=== PATIENT | female | born 1960 | race Caucasian/White ===

== ENCOUNTER 2017-02-11 12:42 | Observation (INO) | payer MEDICAID ==
[2017-02-11] VITALS (9 sets, daily range): BP systolic 103–144; BP diastolic 57–73; PULSE 56–94; RESP 18–20; TEMP 98–98.3; O2SAT 94–99
[~2017-02-11] VITALS: Ht 152.4 cm; Wt 114.5 kg
[~2017-02-11 12:42] MED LIST: ARNI20TI TOPICAL; BUPR100T4 PO; D400400C PO; DULO1CAP3 PO; EPIN1INJ17 IM; FERR300S PO; FISH1000 PO; GABA600T PO; MECL-62 PO; MENT10SP3 EXT; NAPR250T PO; PROP20TA3 PO; TOPI200 PO; ZYRT10TA PO; [UNRECOGNIZED DRUG - CODE] PO
[2017-02-11] MEDS ORDERED: SODIUM CHLORIDE 0.9% FLUSH 10 ML FLUSH IVF PRN (13:00)
--- NOTE | 2017-02-11 13:04 | PD ---
HPI Chief Complaint: Chest Pain Time Seen by Provider: 12:59 Travel History International Travel<30 days: No Contact w/Intl Traveler<30days: No Traveled to known affect area: No History of Present Illness HPI The patient was seen and examined in the presence of the nurse. This patient complains of chest pain. Duration is one hour. Location is center sternum. Not exertionally induced. Pain comes and goes, starts minor and then builds up. No radiation. She denies history of CAD. She is an ex smoker. She reports she had a stress test several years ago that was normal. She has history of fibromyalgia. No alleviating factors. Severity is moderate PFSH Past Medical History ?: Not Social History Alcohol Use: No Tobacco Use: No Substance Use: No Allergies-Medications (Allergen,Severity, Reaction): Coded Allergies: Bactrim (Verified Allergy, Severe, hives, 02/11/17) Pea (Verified Allergy, Severe, Nausea, 02/11/17) Sulfa (Verified Allergy, Severe, Hives, 02/11/17) White Chen (Verified Allergy, Severe, Nausea, 02/11/17) Uncoded Allergies: venom-honey bee (Allergy, Severe, Respiratory Distress, 02/11/17) Reported Meds & Prescriptions Reported Meds & Active Scripts Active Zyrtec Allergy (Cetirizine HCl) 10 Mg Tab 10 Mg PO DAILY Ferrous Sulfate Liq (Ferrous Sulfate) 300 Mg/5 Ml Soln 300 Mg PO BID Topamax (Topiramate) 200 Mg Tab 200 Mg PO BID Propranolol (Propranolol HCl) 20 Mg Tab 20 Mg PO Q8HR Bupropion HCl 100 Mg Tab 100 Mg PO TID Epinephrine Inj (Epinephrine) 0.3 Mg/0.3 Ml Pfpen 0.3 Mg IM ONCE PRN Duloxetine DR (Duloxetine HCl) 60 Mg Capdr 60 Mg PO DAILY Gabapentin 600 Mg Tab 2 Tab PO TID Start by taking 1 tablet three times daily for a week and if you are able to tolerate this by the end of the week, then increase to 2 tablets three times daily. Reported Arnica Tincture Topical (Arnica Topical) 20% Tinc 3 % TOPICAL DIRECTED Biofreeze (Menthol (Topical Analgesic)) 10 % Spr 3.7 % EXT DAILY Relax & Sleep (PhoneAndPhone Natural Products) 1 Tab Tab 2 Tab PO DAILY Vitamin D3 400 (Cholecalciferol) 400 Unit Cap 1 Cap PO DAILY Fish Oil ([place]-3 Fatty Acids) 1,000 Mg Cap 1 Cap PO DAILY Naproxen 250 Mg Tab 220 Mg PO Q6HR Review of Systems General / Constitutional: No: Fever Eyes: No: Visual changes HENT: No: Headaches Cardiovascular: Positive: Chest Pain or Discomfort Respiratory: No: Shortness of Breath Gastrointestinal: No: Abdominal Pain Genitourinary: No: Dysuria Musculoskeletal: Positive: Myalgias, Arthralgias, Pain Skin: No Rash Neurologic: No: Weakness Psychiatric: No: Depression Endocrine: No: Polydipsia Hematologic/Lymphatic: No: Easy Bruising Physical Exam Narrative GENERAL: Well-nourished, well-developed patient in no apparent distress. SKIN: Focused skin assessment reveals no rash and nodules. Skin is Warm and dry. HEAD: Atraumatic. Normocephalic. EYES: Pupils equal and round. No scleral icterus. No injection or drainage. ENT: No nasal bleeding or discharge. Mucous membranes pink and moist. NECK: Trachea midline. No JVD. CARDIOVASCULAR: Regular rate and rhythm. No murmur appreciated. RESPIRATORY: No accessory muscle use. Clear to auscultation. Breath sounds equal bilaterally. GASTROINTESTINAL: Abdomen soft, non-tender, nondistended. Hepatic and splenic margins not palpable. MUSCULOSKELETAL: No obvious deformities. No clubbing. No cyanosis. No edema. NEUROLOGICAL: Awake and alert. No obvious cranial nerve deficits. Motor grossly within normal limits. Normal speech. PSYCHIATRIC: Appropriate mood and affect; insight and judgment normal. Data Data Last Documented VS Vital Signs Date Time Temp Pulse Resp B/P Pulse Ox O2 Delivery O2 Flow Rate FiO2 02/11/17 13:27 18 98 Room Air 02/11/17 12:46 98.3 58 137/62 Orders Electrocardiogram (02/11/17 ) Basic Metabolic Panel (Bmp) (02/11/17 13:00) Ckmb (Isoenzyme) Profile (02/11/17 13:00) Complete Blood Count With Diff (02/11/17 13:00) Prothrombin Time / Inr (Pt) (02/11/17 13:00) Act Partial Throm Time (Ptt) (02/11/17 13:00) Troponin I (02/11/17 13:00) Chest, Single Ap (02/11/17 13:00) Ecg Monitoring (02/11/17 13:00) Iv Access Insert/Monitor (02/11/17 13:00) Oximetry (02/11/17 13:00) Sodium Chloride 0.9% Flush (Ns Flush) (02/11/17 13:00) CKMB (02/11/17 13:20) CKMB% (02/11/17 13:20) Labs Laboratory Tests Test 02/11/17 13:20 White Blood Count 6.6 TH/MM3 Red Blood Count 4.89 MIL/MM3 Hemoglobin 11.5 GM/DL Hematocrit 36.4 % Mean Corpuscular Volume 74.4 FL Mean Corpuscular Hemoglobin 23.5 PG Mean Corpuscular Hemoglobin 31.6 % Concent Red Cell Distribution Width 20.8 % Platelet Count 303 TH/MM3 Mean Platelet Volume 7.7 FL Neutrophils (%) (Auto) 52.4 % Lymphocytes (%) (Auto) 36.8 % Monocytes (%) (Auto) 6.3 % Eosinophils (%) (Auto) 3.7 % Basophils (%) (Auto) 0.8 % Neutrophils # (Auto) 3.5 TH/MM3 Lymphocytes # (Auto) 2.4 TH/MM3 Monocytes # (Auto) 0.4 TH/MM3 Eosinophils # (Auto) 0.2 TH/MM3 Basophils # (Auto) 0.1 TH/MM3 CBC Comment AUTO DIFF Differential Comment AUTO DIFF CONFIRMED Platelet Estimate NORMAL Platelet Morphology Comment NORMAL Ovalocytes 1+ Prothrombin Time 10.1 SEC Prothromb Time International 0.9 RATIO Ratio Activated Partial 23.6 SEC Thromboplast Time Sodium Level 142 MEQ/L Potassium Level 4.3 MEQ/L Chloride Level 111 MEQ/L Carbon Dioxide Level 25.2 MEQ/L Anion Gap 6 MEQ/L Blood Urea Nitrogen 18 MG/DL Creatinine 0.79 MG/DL Estimat Glomerular Filtration 76 ML/MIN Rate Random Glucose 85 MG/DL Calcium Level 8.6 MG/DL Total Creatine Kinase 119 U/L Creatine Kinase MB 0.8 NG/ML Troponin I LESS THAN 0.02 NG/ML MDM Medical Decision Making Medical Screen Exam Complete: Yes Emergency Medical Condition: Yes Medical Record Reviewed: Yes Differential Diagnosis Differential diagnosis includes NV, angina, pericarditis, pleurisy, GERD, anxiety. Narrative Course I have reviewed the patient's electronic medical record. No prior chest pain workups here at the ER or hospital IV placed I reviewed the EKG which shows sinus bradycardia with some diffuse T-wave inversion but no ST elevation I reviewed the chest x-ray is normal Extended cardiac monitoring shows sinus bradycardia without ectopy CBC is normal Metabolic profile is normal CK is normal Troponin is normal Coagulation studies are normal She had aspirin prior to arrival Patient had some atypical chest pain and is currently pain-free. He'll be a 23 hour observation in the chest pain center in order to rule out cardiac cause of her symptoms Diagnosis Primary Impression: Chest pain in adult Admitting Information Admitting Physician Requests: Observation Driss Landry MD Feb 11, 2017 13:04
[2017-02-11 13:33] LABS: AUTOMATED NEUTROPHIL # 3.5 TH/MM3 (1.8-7.7); BASOPHIL # 0.1 TH/MM3 (0-0.2); BASOPHIL % 0.8 % (0.0-2.0); EOSINOPHIL # 0.2 TH/MM3 (0-0.4); EOSINOPHIL % 3.7 % (0.0-4.0); HEMATOCRIT 36.4 % (35.0-46.0); LYMPH % 36.8 % (9.0-44.0); LYMPHOCYTE # 2.4 TH/MM3 (1.0-4.8); MEAN CELL VOLUME 74.4 FL (80.0-100.0); MEAN CORPUSCULAR HEMOGLOBIN 23.5 PG (27.0-34.0); MEAN CORPUSCULAR HGB CONC 31.6 % (32.0-36.0); MONO % 6.3 % (0.0-8.0); NEUT % 52.4 % (16.0-70.0); PLATELET COUNT 303 TH/MM3 (150-450); RED BLOOD COUNT 4.89 MIL/MM3 (4.00-5.30); RED CELL DISTRIBUTION WIDTH 20.8 % (11.6-17.2); WHITE BLOOD COUNT 6.6 TH/MM3 (4.0-11.0)
[2017-02-11 13:35] LABS: HEMO FLAGS AUTO DIFF
--- NOTE | 2017-02-11 13:39 | RADRPT ---
EXAM DATE/TIME: 02/11/2017 13:10 [facility] COMPARISON: No previous studies available for comparison. INDICATIONS : Chest pains mid sternal since this morning. Pt denies SOB. MEDICAL HISTORY : None. SURGICAL HISTORY : None. ENCOUNTER: Initial ACUITY: 1 day PAIN SCORE: 9/10 LOCATION: Bilateral chest FINDINGS: A single view of the chest demonstrates the lungs to be symmetrically aerated without evidence of mas s, infiltrate or effusion. The cardiomediastinal contours are unremarkable. Osseous structures are intact. CONCLUSION: No acute disease. Hansa Baker MD on February 11, 2017 at 13:37 Board Certified Radiologist. This report was verified electronically.
[2017-02-11 13:46] LABS: APTT (PATIENT) 23.6 SEC (24.3-30.1); INTERNATIONAL NORMALIZED RATIO 0.9 RATIO; PROTHROMBIN TIME - PATIENT 10.1 SEC (9.8-11.6)
[2017-02-11 13:55] LABS: ANION GAP 6 MEQ/L (5-15); BICARBONATE 25.2 MEQ/L (21.0-32.0); BLOOD UREA NITROGEN 18 MG/DL (7-18); CHLORIDE 111 MEQ/L (98-107); CREATINE KINASE 119 U/L (26-192); GLOMERULAR FILTRATION RATE 76 ML/MIN (>89); POTASSIUM 4.3 MEQ/L (3.5-5.1); SODIUM (NA) 142 MEQ/L (136-145)
[2017-02-11 14:03] LABS: OVALOCYTES 1+ (NORMAL); PLATELET ESTIMATE SMEAR NORMAL (NORMAL); PLATELET MORPHOLOGY NORMAL (NORMAL); SCAN/DIFF AUTO DIFF CONFIRMED
[2017-02-11 14:08] LABS: CKMB 0.8 NG/ML (0.5-3.6)
[2017-02-11] MEDS ORDERED: ONDANSETRON HCL 4 MG/2 ML VIAL IV PRN (14:30)
[2017-02-11] MEDS ORDERED: ACETAMINOPHEN 500 MG CPLT PO PRN (14:30)
[2017-02-11] MEDS ORDERED: NITROGLYCERIN 0.4 MG SL 25 TABS/BTL SL PRN (14:30)
[2017-02-11] MEDS ORDERED: KETOROLAC TROMETHAMINE 30 MG/ML (IVP) VIAL IV PUSH ONE (15:45)
--- NOTE | 2017-02-11 15:54 | HHI.HP ---
[facility] Primary Care Physician Luzmaria Fraga MD Chief Complaint Chest pain History of Present Illness 56-year-old female presents to the emergency room with the complaint of chest pain. Onset approximately noon today while talking with her daughter. Location substernal. Characterized as a sharp pain described as "though someone was poking me with a burning stick." Radiation to her back. Pain came on quickly. Duration approximately 1 minute before pain slowly subsided. No associated symptoms. States breathing makes pain worse. A few minutes later had another episode of sharp pain. At that time daughter called 911. No change in pain with position or movement. She has never had chest pain in the past. Endorses chronic pain with an increase of "excessive pain all over" the past week. Endorses all of her joints hurt and her left arm has limited movement due to pain. She has discussed this with her primary care provider and has an appointment with pain specialist on February 16. Currently is substernal area is "achy." Review of Systems General: No fatigue,weakness, fever, chills, recent illness, or change in appetite. Increased pain compared to have chronic pain, pending pain management physician appointment. HEENT: Chronic migraineshas x2 weekly. No vision changes, no nasal congestion or drainage, no dysphasia CV: As stated above. No chest pressure, palpitations, intermittent leg pain, or dizziness RESP: No SOB, cough, wheeze, or recent URI. History of Asthma and sleep apnea. GI: No nausea, vomiting, bowel changes, diarrhea, pain, distention, melena, blood in the stool. Takes senna twice daily to prevent constipation. History of gastric bypass (2004), states she has gained all her weight back since surgery. She is trying to lose weight with diet and increasing her activity. : No dysuria, urgency, frequency, hematuria, or history of kidney stones EXT: No lower leg edema. Reports bilateral feet and ankle neuropathy due to diabetes, also occasionally she has tingling in her hands. MS: Chronic generalized discomfort, increased discomfort in her joints over the past week. Limited range of motion with left shoulderfollowing with PCP. Walks with a cane. NEURO: No change in memory, LOC, motor/sensory deficits, walks with a cane due to neuropathy pain. PSYCH: Endorses long-standing anxiety, depression, and PTSD. Currently has a pending referral for psychiatrist. No suicidal ideation SKIN: No rashes, no concerning lesions Past Family Social History Allergies: Coded Allergies: Bactrim (Verified Allergy, Severe, hives, 02/11/17) Pea (Verified Allergy, Severe, Nausea, 02/11/17) Sulfa (Verified Allergy, Severe, Hives, 02/11/17) White Chen (Verified Allergy, Severe, Nausea, 02/11/17) Uncoded Allergies: venom-honey bee (Allergy, Severe, Respiratory Distress, 02/11/17) Past Medical History Diabetes, neuropathy, fibromyalgia, myofascial dysfunctional syndrome, PTSD, anxiety, depression, sleep apnea, vitamin D deficiency, iron deficiency anemia, migraines, asthma Past Surgical History Cholecystectomy, gastric [id number], tubal ligation, repair of deviated septum Reported Medications Reported Meds & Active Scripts Active Zyrtec Allergy (Cetirizine HCl) 10 Mg Tab 10 Mg PO DAILY Ferrous Sulfate Liq (Ferrous Sulfate) 300 Mg/5 Ml Soln 300 Mg PO BID Topamax (Topiramate) 200 Mg Tab 200 Mg PO BID Propranolol (Propranolol HCl) 20 Mg Tab 20 Mg PO Q8HR Bupropion HCl 100 Mg Tab 100 Mg PO TID Epinephrine Inj (Epinephrine) 0.3 Mg/0.3 Ml Pfpen 0.3 Mg IM ONCE PRN Duloxetine DR (Duloxetine HCl) 60 Mg Capdr 60 Mg PO DAILY Gabapentin 600 Mg Tab 2 Tab PO TID Start by taking 1 tablet three times daily for a week and if you are able to tolerate this by the end of the week, then increase to 2 tablets three times daily. Reported Arnica Tincture Topical (Arnica Topical) 20% Tinc 3 % TOPICAL DIRECTED Biofreeze (Menthol (Topical Analgesic)) 10 % Spr 3.7 % EXT DAILY Relax & Sleep (Misc Natural Products) 1 Tab Tab 2 Tab PO DAILY Vitamin D3 400 (Cholecalciferol) 400 Unit Cap 1 Cap PO DAILY-currently on hold per PCP for vitamin D levels Fish Oil ([place]-3 Fatty Acids) 1,000 Mg Cap 1 Cap PO DAILY Naproxen 250 Mg Tab 220 Mg PO Q8hr Active Ordered Medications Current Medications Medications (Trade) Dose Ordered Sig/Linda Route Start Time Stop Time Status Last Admin (Tylenol) 500 mg Q4H PRN PO 02/11/17 14:30 (Zofran Inj) 4 mg Q6H PRN IV 02/11/17 14:30 (Nitrostat Sl) 0.4 mg Q5M PRN SL 02/11/17 14:30 (Aspirin) 325 mg DAILY PO 02/12/17 09:00 Family History Noncontributory for early onset cardiovascular disease. Mother has "heart problems" but no blockages. Mother is alive. Father committed suicide 2000. No siblings with cardiovascular disease. Social History Told she is a "prediabetic," last hemoglobin A1c was 6.0, currently diabetes controlled with diet. Denies hypertension or hyperlipidemia. Quit smoking May 2016. Prior to quitting smoking 1 pack daily intermittently for 25+ years. Denies any alcohol or illegal drug use. Legally marriedseparated for 20+ years. Recently moved from [facility] last summer to help take care of her mother. Past cardiac testing No recent cardiac stress testing. Last chemical stress test approximately 45 years agounremarkable. Never had cardiac catheterization. No known coronary artery disease. States abnormal EKGs in the past. Per review of medical record recent lipid panel as follows-Total cholesterol 196 , Triglycerides 142, HDL 64, LDL 104 Physical Exam Vital Signs Vital Signs Date Time Temp Pulse Resp B/P Pulse Ox O2 Delivery O2 Flow Rate FiO2 02/11/17 15:11 65 18 144/73 97 Room Air 02/11/17 14:56 99 21 02/11/17 13:27 18 98 Room Air 02/11/17 12:51 98 Room Air 02/11/17 12:46 98.3 58 20 137/62 98 Physical Exam GENERAL: Alert WN, WD, NAD, pleasant, morbidly obese female who appears older than stated age. HEAD: NC, AT EYES: Sclera clear, conjunctiva without injection, pupils equal and round ENT: Mucous membranes pink and moist NECK: Supple, no masses, trachea midline CV: RRR, without murmur, rub, gallop, no JVD, S1-S2 no S3-S4. No carotid bruits RESP: Clear lungs throughout bilateral, no crackles, wheeze, rhonchi, symmetrical chest rise, nonlabored, able to speak in full sentences ABD: Soft, obese, generalized tenderness with palpation, negative Corona's sign , ND, no masses, positive bowel tones BACK: No CVAT, no scoliosis EXT: Pulses +24, +1 trace pedal edema MS: Normal tone 4 extremities, nontender, no obvious deformities, left shoulder limited range of motion NEURO: CN II through CN XII grossly intact, motor strength 5/5 PSYCH: A+O 3, pleasant affect, appropriate speech, appropriate mood and affect , insight and judgment SKIN: Normal turgor, normal texture, no lesions, no rashes, brisk cap refill, even hair distribution Laboratory Laboratory Tests Test 02/11/17 13:20 White Blood Count 6.6 Red Blood Count 4.89 Hemoglobin 11.5 Hematocrit 36.4 Mean Corpuscular Volume 74.4 Mean Corpuscular Hemoglobin 23.5 Mean Corpuscular Hemoglobin 31.6 Concent Red Cell Distribution Width 20.8 Platelet Count 303 Mean Platelet Volume 7.7 Neutrophils (%) (Auto) 52.4 Lymphocytes (%) (Auto) 36.8 Monocytes (%) (Auto) 6.3 Eosinophils (%) (Auto) 3.7 Basophils (%) (Auto) 0.8 Neutrophils # (Auto) 3.5 Lymphocytes # (Auto) 2.4 Monocytes # (Auto) 0.4 Eosinophils # (Auto) 0.2 Basophils # (Auto) 0.1 CBC Comment AUTO DIFF Differential Comment AUTO DIFF CONFIRMED Platelet Estimate NORMAL Platelet Morphology Comment NORMAL Ovalocytes 1+ Prothrombin Time 10.1 Prothromb Time International 0.9 Ratio Activated Partial 23.6 Thromboplast Time Sodium Level 142 Potassium Level 4.3 Chloride Level 111 Carbon Dioxide Level 25.2 Anion Gap 6 Blood Urea Nitrogen 18 Creatinine 0.79 Estimat Glomerular Filtration 76 Rate Random Glucose 85 Calcium Level 8.6 Total Creatine Kinase 119 Creatine Kinase MB 0.8 Troponin I LESS THAN 0.02 Result Diagram: 02/11/17 1320 02/11/17 1320 Imaging Last Impressions Chest X-Ray 02/11/17 1300 Signed Impressions: Service Date/Time: Saturday, February 11, 2017 13:10 - CONCLUSION: No acute disease. Hansa Baker MD Course EKG First EKG normal sinus bradycardia with T-wave inversions, no ST depressions Assessment and Plan Assessment and Plan #1 Chest painadmitted to chest pain center. We'll complete 3 sets of EKGs and cardiac enzymes. Will monitor overnight. Will be seen and evaluated by Dr. Rex Florence in a.m. Discussed with patient chest pain most likely musculoskeletal in nature however due to her multiple risk factors cooker chip may recommend a chemical stress test. Patient is agreeable to plan of care. #2 Musculoskeletal pain-Toradol 30 mg 1 dose, patient has allergy to Bactrim however has had Toradol in the past without any ill effects #3 Chronic painkeep appointment with pain management Andrew #4 Iron deficiencycontinue ferrous sulfate #5 Anxietycontinue Wellbutrin and Celexa #6 Peripheral neuropathycontinue gabapentin #7 Migrainescontinue Topamax #8 Diabetescontinue dietary modifications and encouraged daily activity Ghazal Anne Feb 11, 2017 15:53
[2017-02-11] MEDS: GABAPENTIN 300 MG CAP PO SCH (16:44)
[2017-02-11] MEDS: buPROPion HCL 100 MG TAB PO SCH (16:44)
[2017-02-11 17:26] LABS: CREATINE KINASE 73 U/L (26-192)
[2017-02-11 20:18] LABS: CREATINE KINASE 72 U/L (26-192)
[2017-02-11] MEDS: SODIUM CHLORIDE 0.9% FLUSH 10 ML FLUSH IV FLUSH SCH (22:35)
[2017-02-11] MEDS: PROPRANOLOL HCL 20 MG TAB PO SCH (22:36)
[2017-02-11] MEDS: FERROUS SULFATE 300 MG /5ML UDC PO SCH (22:36)
[2017-02-11] MEDS: TOPIRAMATE 200 MG TAB PO SCH (22:36)
[2017-02-11] MEDS: KETOROLAC TROMETHAMINE 30 MG/ML (IVP) VIAL IV PUSH SCH (22:37)
[2017-02-12 03:19] VITALS: PULSE 54
[2017-02-12 04:09] VITALS: BP 107/60; PULSE 57; RESP 18; TEMP 98; O2SAT 95
[2017-02-12] MEDS: PROPRANOLOL HCL 20 MG TAB PO SCH (05:43)
[2017-02-12] MEDS: KETOROLAC TROMETHAMINE 30 MG/ML (IVP) VIAL IV PUSH SCH ×2 (05:50)
[2017-02-12 07:18] VITALS: BP 118/65; PULSE 55; RESP 19; TEMP 98; O2SAT 94
[2017-02-12] MEDS ORDERED: ASPIRIN 325 MG TAB PO SCH (09:00)
[2017-02-12] MEDS ORDERED: CETIRIZINE HCL 10 MG TAB PO SCH (09:00)
[2017-02-12] MEDS ORDERED: DULoxetine HCl DR 60 MG CAP PO SCH (09:00)
[2017-02-12] MEDS: FERROUS SULFATE 300 MG /5ML UDC PO SCH (09:00)
[2017-02-12] MEDS ORDERED: REGADENOSON INJ 0.4 MG/5 ML SYR ONE (09:46)
[2017-02-12] MEDS: TOPIRAMATE 200 MG TAB PO SCH (10:49)
[2017-02-12] MEDS: GABAPENTIN 300 MG CAP PO SCH (10:50)
[2017-02-12] MEDS: buPROPion HCL 100 MG TAB PO SCH (10:53)
[2017-02-12] MEDS: SODIUM CHLORIDE 0.9% FLUSH 10 ML FLUSH IV FLUSH SCH (10:55)
--- NOTE | 2017-02-12 11:05 | RADRPT ---
EXAM DATE/TIME: 02/12/2017 08:51 [facility] COMPARISON: CHEST SINGLE AP, February 11, 2017, 13:10. INDICATIONS : Mid chest pain radiating to the back for one day. Angina. DOSE: 35.0 mCi Tc99m Myoview at stress. 11.0 mCi Tc99m Myoview at rest. 0.4 mg Lexiscan STRESS SYMPTOMS: Heart racing, headache. EJECTION FRACTION: > 70% MEDICAL HISTORY : Diabetes mellitus type 2. SURGICAL HISTORY : Tubal ligation. Cholecystectomy. Gastric bypass. ENCOUNTER: Initial ACUITY: 1 day PAIN SCALE: 8/10 LOCATION: Midsternal chest TECHNIQUE: The patient underwent pharmacologic stress with infusion of prescribed dose. Continuous ECG tracing was monitored during stress. Gated SPECT imaging was performed after stress and conventional SPECT i maging was performed at rest. The examination was performed on a SPECT/CT scanner, both attenuation and non-corrected datasets were reviewed. FINDINGS: DISTRIBUTION: The maximum perfused segment at stress is in the septal wall. PERFUSION STUDY: The pattern of perfusion at stress is within normal limits. GATED STUDY: There is intact wall motion and thickening without hypokinetic or dyskinetic segments. CONCLUSION: 1. No definite reversible perfusion defects are identified to suggest stress-induced myocardial ische salma. 2. Normal ejection fraction. RISK CATEGORY: Low (<1% Annual Mortality Rate) Jayden Kingston MD on February 12, 2017 at 11:00 Board Certified Radiologist. This report was verified electronically.
--- NOTE | 2017-02-12 11:10 | HHI.DCPOC ---
Discharge Care Plan Goals to Promote Your Health * To prevent worsening of your condition and complications * To maintain your health at the optimal level Directions to Meet Your Goals Take your medications as prescribed Follow your dietary instruction Follow activity as directed Keep your appointments as scheduled Take your immunizations and boosters as scheduled If your symptoms worsen call your PCP, if no PCP go to Urgent Care Center or Emergency Room Smoking is Dangerous to Your Health. Avoid second hand smoke Call the 24-hour hour crisis hotline for domestic abuse at [facility] [place]erman Feb 12, 2017 11:10
[2017-02-12 11:29] VITALS: PULSE 60
--- NOTE | 2017-02-12 16:43 | EKG ---
Date Performed: 02/11/2017 Time Performed: 19:18:50 PTAGE: 56 years EKG: Sinus rhythm NONSPECIFIC T-WAVE ABNORMALITY BORDERLINE ECG PREVIOUS TRACING : 02/11/2017 16.29 Since previous tracing, no significant change noted DOCTOR: Rex Florence Interpretating Date/Time 02/12/2017 16:42:51
--- NOTE | 2017-02-12 16:43 | EKG ---
Date Performed: 02/11/2017 Time Performed: 13:03:03 PTAGE: 56 years EKG: SINUS BRADYCARDIA LOW QRS VOLTAGE IN PRECORDIAL LEADS SEPTAL MYOCARDIAL INFARCTION POSSIBLE INFERIOR MYOCARDIAL INFARCTION ABNORMAL ECG NO PREVIOUS TRACING DOCTOR: Rex Florence Interpretating Date/Time 02/12/2017 16:42:26
--- NOTE | 2017-02-12 16:43 | EKG ---
Date Performed: 02/11/2017 Time Performed: 16:29:10 PTAGE: 56 years EKG: SINUS BRADYCARDIA BORDERLINE ECG PREVIOUS TRACING : 02/11/2017 13.03 Since previous tracing, no significant change noted DOCTOR: Rex Florence Interpretating Date/Time 02/12/2017 16:42:17
--- NOTE | 2017-02-12 16:46 | TR ---
Date Performed: 02/12/2017 Time Performed: 09:23:37 DOCTOR: Rex Florence DRUG LIST: CLINICAL HISTORY: REASON FOR TEST: REASON FOR ENDING: OBSERVATION: CONCLUSION: Lexiscan stress test was performed under standard four minute protocol. Radionuclid e was injected one minute prior to ending the test. No electrocardiographic abormalities were present to suggest ischemia. Nuclear imaging and interpretation are pending. COMMENTS:
[2017-02-23] MEDS ORDERED: BUPR100T4 PO (13:41)
[2017-02-23] MEDS ORDERED: MECL-62 PO (13:41)
[2017-04-17] MEDS ORDERED: LYRI150C PO (09:32)
[2017-04-17] MEDS ORDERED: SUMA100T2 PO (09:32)
[2017-04-17] MEDS ORDERED: BLOO1KIT59 (09:47)
[2017-04-17] MEDS ORDERED: ONETMIS8 (09:47)
[2017-04-17] MEDS ORDERED: ONETTES4 (09:47)
[2017-04-17] MEDS ORDERED: ZOFR8TAB PO (10:03)
== END 2017-02-12 15:01 | disposition home or self-care (01) ==
LOC: NEPE 12:42 → NEDA 14:20 → NEPFCDU 15:32
DX: R07.9 Chest pain, unspecified (principal); M79.7 Fibromyalgia; G89.29 Other chronic pain; E11.40 Type 2 diabetes mellitus with diabetic neuropathy, unspecified; Z87.891 Personal history of nicotine dependence; Z79.899 Other long term (current) drug therapy; R00.1 Bradycardia, unspecified; F43.10 Post-traumatic stress disorder, unspecified; Z88.2 Allergy status to sulfonamides; G43.909 Migraine, unspecified, not intractable, without status migrainosus; R94.31 Abnormal electrocardiogram [ECG] [EKG]
CPT/HCPCS: 71010; 78452; 80048; 82550; 82552; 84484; 85025; 85610; 85730; 93005; 93017; 99285; A9502; G0378; J1885; J2785